=== PATIENT | female | born 1980 | race Caucasian/White ===

== ENCOUNTER 2017-01-06 23:24 | Emergency (ER) | payer OTHER ==
[2017-01-06 23:31] VITALS: TEMP 97.7; O2SAT 97
[2017-01-06] MEDS ORDERED: LET GEL TOPICAL 1 EA SYR TP ONE (23:42)
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
[2017-01-07 00:56] VITALS: BP 109/74; PULSE 90; RESP 18
== END 2017-01-07 00:55 | disposition home or self-care (01) ==
DX: S51.812A Laceration without foreign body of left forearm, initial encounter (principal); V18.0XXA Pedal cycle driver injured in noncollision transport accident in nontraffic accident, initial encounter; Y99.8 Other external cause status; Y93.55 Activity, bike riding